=== PATIENT | female | born 1950 | race Caucasian/White ===

== ENCOUNTER → 2016-09-16 | Outpatient (CLI) | payer OTHER, MEDICARE | LOC: MC.RAD 07:40 | DX: Z12.31 Encounter for screening mammogram for malignant neoplasm of breast (principal); Z80.3 Family history of malignant neoplasm of breast ==

== ENCOUNTER → 2017-09-19 | Outpatient (CLI) | payer BC, MEDICARE | LOC: MC.RAD 06:58 | DX: Z12.31 Encounter for screening mammogram for malignant neoplasm of breast (principal) ==

== ENCOUNTER → 2018-10-16 | Outpatient (CLI) | payer BC | LOC: MC.RAD 10:59 | DX: Z12.31 Encounter for screening mammogram for malignant neoplasm of breast (principal) ==

== ENCOUNTER 2019-01-24 15:17 | Inpatient (IN) | payer BC, MEDICARE ==
[~2019-01-24] VITALS: Ht 162.6 cm; Wt 69.0 kg
--- NOTE | 2019-01-24 15:50 | NUR ---
DIRECT ADMIT FOLLOWING CT RESULTS. A&0. VSS. C/O MILD TO MOD ABD PAIN THAT COMES AND GOES. PATIENT REPORTS DECREASED APPETITE. DENIES N/V. ABDOMIN IS ROUND, SOFT AND WITH POSITIVE BOWL SOUNDS. PATIENT REPORTS FEELING "BLOATED". HEAD TO TOE ASSESSMENT COMPLETE. ORIENTED TO ROOM. CALL LIGHT IN REACH.
[2019-01-24 15:54] VITALS: BP 150/78; PULSE 75; TEMP 98.4
[2019-01-24] MEDS ORDERED: LIPITOR 10MG10 MG PO (16:07)
[2019-01-24] MEDS ORDERED: WELLBUTRIN SR150 M1 PO (16:07)
[2019-01-24] MEDS ORDERED: SYNTHROID 0.10.15 MG PO (16:07)
[2019-01-24] MEDS ORDERED: DESYREL 50MG50 MG PO (16:08)
[2019-01-24] MEDS ORDERED: HCTZ 25MG TAB25 MG PO (16:08)
[2019-01-24] MEDS ORDERED: MACROBID 1100 MG/CAP PO (16:09)
[2019-01-24] MEDS ORDERED: CENTRUM SILVER1 TA2 PO (16:10)
[2019-01-24 18:28] LABS: HEMATOCRIT 37.4 % (37.0-47.0); HEMOGLOBIN 12.9 g/dl (12.5-16.0); MEAN CELL VOLUME 92 fl (80.0-100.0); MEAN CORPUSCULAR HEMOGLOBIN 32 pg (27.0-31.0); MEAN CORPUSCULAR HGB CONC 35 g/dl (33.0-37.0); MEAN PLATELET VOLUME 10.5 fl (7.4-10.4); PLATELET COUNT 182 K/mm3 (130-400); RED BLOOD COUNT 4.06 M/mm3 (4.10-5.30); REDCELL DISTRIBUTION WIDTH-CV 12.1 % (11.5-14.5)
[2019-01-24 19:07] LABS: BAND 7 % (0-10); LYMPHOCYTE 15 % (20.0-51.0); METAMYELOCYTE 2 % (0-0); MYELOCYTE 2 % (0-0); NEUTROPHILS 67 % (42.0-75.2); PLATELET ESTIMATE NORMAL (NORMAL)
[2019-01-24 19:35] VITALS: BP 120/54; PULSE 72; TEMP 98.9
--- NOTE | 2019-01-24 20:00 | NUR ---
Patient reports pain 7/10 to abdomen after eating small amount of food. Has IVF infusing to left AC without redness or swelling. Is alert and oriented x4.
--- NOTE | 2019-01-24 20:21 | NUR ---
Medicated with Oxycodone 5mg and Hs med at this time.
[2019-01-25 00:08] VITALS: BP 119/56; PULSE 63; TEMP 99.6
--- NOTE | 2019-01-25 00:23 | NUR ---
Patient reports passing gas when up to bathroom to void. Reports pain to abdomen comes and goes. Oxycodone 5mg po at this time.
--- NOTE | 2019-01-25 01:50 | NUR ---
Reports headache and feeling "achy". Medicated with ES Tylenol at this time.
[2019-01-25 04:12] VITALS: BP 115/57; PULSE 63; TEMP 98.5
--- NOTE | 2019-01-25 06:00 | NUR ---
No concerns for pain voiced at this time. IVF infusing to left AC without problem.
[2019-01-25 07:45] VITALS: BP 105/61; PULSE 59; TEMP 98.5
[2019-01-25 08:57] LABS: BASO % 0.5 % (0.0-2.0); EOS # 0.1 (0.0-0.7); EOS % 1.2 % (0-4.0); GRAN # 4.4 (1.4-6.5); GRAN % 74.8 % (42.2-75.2); HEMATOCRIT 35.3 % (37.0-47.0); HEMOGLOBIN 11.9 g/dl (12.5-16.0); LYMPH # 0.7 (1.2-3.4); LYMPH % 12.5 % (20.0-51.0); MEAN CELL VOLUME 93 fl (80.0-100.0); MEAN CORPUSCULAR HEMOGLOBIN 32 pg (27.0-31.0); MEAN CORPUSCULAR HGB CONC 34 g/dl (33.0-37.0); MONO # 0.6 (0.1-0.6); MONO % 10.7 % (1.7-9.3); PLATELET COUNT 172 K/mm3 (130-400); RED BLOOD COUNT 3.78 M/mm3 (4.10-5.30); REDCELL DISTRIBUTION WIDTH-CV 12.2 % (11.5-14.5)
[2019-01-25 09:11] LABS: CALCIUM 8.4 mg/dL (8.4-10.2); CREATININE, serum 0.79 (0.52-1.25)
--- NOTE | 2019-01-25 10:09 | NUR ---
REBECCA met with the patient to discuss discharge plan. The patient lives in [place] with her , Sandy. She reports independence with ADLs and has a cane and walker. The patient's PCP is Dr. Gloria Boyd and she receives her medications at the [facility]. She reports no difficulties obtaining her meds. The patient does not have advanced directives in EMR, but she states that she does have a Living Will. She was also interested in obtaining a form for DPO[employer]-[facility]. REBECCA provided. The patient plans to return home with her upon discharge. No additional needs at this time.
--- NOTE | 2019-01-25 11:00 | NUR ---
Patient has been doing well this am. Minimal complaints of pain. No complaints of nausea. Explained the diet ordered and what she can have. Patient was worried about her urine because it has been dark and she is not voiding as much. Her urine is starting to lighten up though. She brandon burning though with voiding and no irriation. No other changes at this time. Call light within reach.
[2019-01-25 11:37] VITALS: BP 125/66; PULSE 63; TEMP 99.4
[2019-01-25 17:01] VITALS: BP 124/73; PULSE 65; TEMP 98.2
[2019-01-25 18:01] LABS: ALBUMIN 3.2 gm/dL (3.5-5.0); BILIRUBIN,TOTAL 0.4 mg/dL (0.0-1.0); CALCIUM 8.5 mg/dL (8.4-10.2); CREATININE, serum 0.68 (0.52-1.25); POTASSIUM 3.5 mmol/L (3.4-5.0); TOTAL PROTEIN 6.3 gm/dL (6.4-8.2)
--- NOTE | 2019-01-25 19:00 | NUR ---
Patient has been doing well this afternoon. She had one dose of roxicodone this afternoon and has not needed additional pain medications. Discussed the low fiber diet options. No complaints of nausea today. No other changes at this time. Call light within reach.
--- NOTE | 2019-01-25 20:10 | NUR ---
Patient in bed. Reports pain /10 to abdomen. Taking potassium replacement, oral dose given at this time. IVF continue to left AC without redness or swelling. Reports having stools.
[2019-01-25 20:16] VITALS: BP 116/47; PULSE 77; TEMP 99.1
[2019-01-26 01:00] VITALS: BP 107/50; PULSE 50; TEMP 97.8
[2019-01-26 04:34] VITALS: BP 117/55; PULSE 55; TEMP 97.6
--- NOTE | 2019-01-26 05:00 | NUR ---
Has been independent in room. Has had stool this shift. Voiding without problem. No Oxycodone given this shift.
[2019-01-26 07:03] LABS: HEMOGLOBIN 11.9 g/dl (12.5-16.0); MEAN CELL VOLUME 93 fl (80.0-100.0); MEAN CORPUSCULAR HEMOGLOBIN 32 pg (27.0-31.0); MEAN CORPUSCULAR HGB CONC 34 g/dl (33.0-37.0); MEAN PLATELET VOLUME 10.6 fl (7.4-10.4); PLATELET COUNT 196 K/mm3 (130-400); RED BLOOD COUNT 3.75 M/mm3 (4.10-5.30); REDCELL DISTRIBUTION WIDTH-CV 12.3 % (11.5-14.5)
[2019-01-26 07:08] LABS: CALCIUM 8.6 mg/dL (8.4-10.2); CREATININE, serum 0.72 (0.52-1.25); POTASSIUM 3.6 mmol/L (3.4-5.0)
[2019-01-26 07:17] LABS: HEMATOCRIT 34.9 % (37.0-47.0)
--- NOTE | 2019-01-26 08:00 | NUR ---
PATIENT IS DROWSY AND RESTING IN BED THIS MORNING. PATIENT AROUSES EASILY TO NAME. PATIENT IS A&0X4. VSS. BOWEL SOUNDS ACTIVE ALL FOUR QUADRANTS. PATIENT TOLERATING SMALL AMOUNTS OF DIET WITHOUT ANY COMPLAINTS OF N/V. POSITIVE PEDAL PULSES EQUAL BILATERALLY. IV FLUIDS INFUSING TO LEFT AC IV VIA PUMP. CALL LIGHT WITHIN REACH. BREAKFAST TRAY ORDERED. PATIENT DENIES ANY OTHER NEEDS AT THIS TIME.
[2019-01-26 08:29] VITALS: BP 176/78; PULSE 78; TEMP 98.9
[2019-01-26 08:56] LABS: BAND 16 % (0-10); EOSINOPHIL 4 % (0-4); LYMPHOCYTE 33 % (20.0-51.0); NEUTROPHILS 40 % (42.0-75.2); PLATELET ESTIMATE NORMAL (NORMAL)
[2019-01-26 12:55] VITALS: BP 123/59; PULSE 64; TEMP 98
--- NOTE | 2019-01-26 15:02 | NUR ---
PATIENT'S LEFT AC INT DISCONTINUED PER PENDING DISCHARGE. TIP INTACT. PATIENT TOLERATED WELL. DISCHARGE INSTRUCTIONS REVIEWED WITH PATIENT. ALL QUESTIONS ANSWERED. PATIENT PERSONAL BELONGINGS GATHERED. PATIENT WAITING FOR TO ARRIVE WITH PERSONAL VEHICLE FOR DISCHARGE.
--- NOTE | 2019-01-26 15:30 | NUR ---
PATIENT AMBULATED WITH SURGICAL STAFF TO PERSONAL VEHICLE. PATIENT DISCHARGED.
== END 2019-01-26 15:30 | disposition home or self-care (01) | DRG 392 ==
LOC: SURG 15:17
PROVIDERS: ADMIT Surgery
DX: K57.20 Diverticulitis of large intestine with perforation and abscess without bleeding (principal); I10 Essential (primary) hypertension; E78.00 Pure hypercholesterolemia, unspecified; E03.9 Hypothyroidism, unspecified; Z87.891 Personal history of nicotine dependence
CPT/HCPCS: J2543; J7042

== ENCOUNTER → 2019-01-24 | Outpatient (CLI) | payer BC ==
[~2019-01-24] MED LIST: CENTRUM SILVER1 TA2 PO; DESYREL 50MG50 MG PO; HCTZ 25MG TAB25 MG PO; LIPITOR 10MG10 MG PO; MACROBID 1100 MG/CAP PO; SYNTHROID 0.10.15 MG PO; WELLBUTRIN SR150 M1 PO
== END ==
LOC: COL.RAD 12:51
DX: K63.0 Abscess of intestine (principal); K52.9 Noninfective gastroenteritis and colitis, unspecified; Z90.710 Acquired absence of both cervix and uterus
CPT/HCPCS: Q9967

== ENCOUNTER → 2019-10-18 | Outpatient (CLI) | payer BC ==
[~2019-10-18] MED LIST changes: +FLAGYL500 MG PO; +NEOMYCIN S500 MG/TAB PO; +ROXICODONE 55 MG/TAB PO
== END ==
LOC: MC.RAD 08:44
DX: Z12.31 Encounter for screening mammogram for malignant neoplasm of breast (principal)

== ENCOUNTER → 2020-10-20 | Outpatient (CLI) | payer BC | LOC: MC.RAD 07:30 | DX: Z12.31 Encounter for screening mammogram for malignant neoplasm of breast (principal) ==

== ENCOUNTER → 2021-11-11 | Outpatient (CLI) | payer BC | LOC: MC.RAD 09:25 | DX: Z12.31 Encounter for screening mammogram for malignant neoplasm of breast (principal) ==